=== PATIENT | male | born 1960 | race Caucasian/White ===

== ENCOUNTER 2018-11-29 08:58 | Emergency (ER) | payer OTHER ==
[~2018-11-29] VITALS: Ht 175.3 cm; Wt 84.8 kg
== END 2018-11-29 16:53 | disposition home or self-care (01) ==
LOC: ER 08:58
DX: R53.81 Other malaise (principal); N39.0 Urinary tract infection, site not specified
CPT/HCPCS: 99283; 36415; 96365; J0744; J3490

== ENCOUNTER 2019-04-17 08:42 | Emergency (ER) | payer OTHER ==
[~2019-04-17] VITALS: Ht 175.3 cm; Wt 86.2 kg
== END 2019-04-17 09:51 | disposition home or self-care (01) ==
LOC: ER 08:42
DX: H61.23 Impacted cerumen, bilateral (principal)

== ENCOUNTER → 2023-04-09 | Emergency (ER) | payer OTHER ==
[~2023-04-09] VITALS: Ht 175.3 cm; Wt 113.4 kg
[2023-04-09 12:19] LABS: ABG PH 7.497 (7.35-7.45); ABG PO2 84.3 mmHg (80-100); ABG pCO2 24.4 mmHg (35-45); BASE EXCESS -2.8 mmol/l; BICARBONATE 18.5 mmol/l (23-25); SaO2 97.2 %; Tco2 19.2 mmol/l
[2023-04-09 12:23] LABS: MEAN CELL VOLUME 94.4 fL (80.0-100.00); MEAN CORPUSCULAR HGB CONC 31.7 g/dl (32.0-36.0); RED BLOOD COUNT 1.72 M/uL (4.00-6.00); RED CELL DISTRIBUTION WIDTH 13.5 % (11.5-14.5)
[2023-04-09 12:36] LABS: PH,URINE 5.5 (5.0-8.0); URINE APPEARANCE Turbid; URINE BILIRRUBIN Negative (NEGATIVE); URINE BLOOD Large; URINE COLOR Orange; URINE LEUKOCYTE Large; URINE NITRATE Positive
[2023-04-09 12:37] LABS: BILIRUBIN TOTAL 0.15 mg/dL (0.3-1.2); CALCIUM 6.8 mg/dL (8.5-10.1); POTASSIUM 4.04 mEq/L (3.5-5.1); TOTAL PROTEIN 2.7 gm/dL (6.4-8.2); URINE EPITHELIAL CELLS 82.1 uL (0.0-38.8)
[2023-04-09 12:38] LABS: ALBUMIN 0.7 gm/dL (3.4-5.0); CREATININE SERUM 0.29 mg/dL (0.70-1.30); GFR 307.34
[2023-04-09 12:49] LABS: INR 1.67
[2023-04-09 12:54] LABS: URINE GLUCOSE >=1000 MG/DL (NEGATIVE); URINE PROTEIN 300 (NEGATIVE); URINE RBC > 10558.9 uL (0.0-20.8)
[2023-04-09 12:55] LABS: URINE BACTERIA > 9821.5 uL (0.0-1933); URINE WBC > 5548.3 uL (0.0-23.2)
[2023-04-09 12:56] LABS: MEAN CORPUSCULAR HEMOGLOBIN 29.6 pg (27.00-32.0); PROTHROMBIN TIME 16.9 SECONDS (9.0-11.5)
[2023-04-09 12:57] LABS: HEMATOCRIT 16.2 % (39.0-48.0); HEMOGLOBIN 5.1 g/dL (13-16.00); PARTIAL THROMBOPLASTIN TIME 69.9 SECONDS (22.0-34.0)
[2023-04-09 12:58] LABS: PLATELET COUNT 77 K/uL (150-450)
[2023-04-09 16:07] LABS: allen test SATISFACTORY; o2 21 %; puncture site RADIAL RIGHT
== END | disposition home or self-care (01) ==
LOC: ER 10:51
PROVIDERS: General Practice
DX: D64.89 Other specified anemias (principal); N39.0 Urinary tract infection, site not specified; E11.9 Type 2 diabetes mellitus without complications; I10 Essential (primary) hypertension; Z88.0 Allergy status to penicillin; Z20.822 Contact with and (suspected) exposure to COVID-19
CPT/HCPCS: 36415; 51702; 82803; 93005; 96365; 96366; 99285; J0744; J1956; J3430; J3490 ×2